=== PATIENT | female | born 1995 | race African-American/Black ===

== ENCOUNTER 2019-10-17 22:51 | Emergency (ER) | payer BC ==
[~2019-10-17] VITALS: Ht 172.7 cm; Wt 73.0 kg
[2019-10-17 22:51] VITALS: BP 133/92
--- NOTE | 2019-10-17 23:12 | PHYS DOC ---
General Adult EDM: Chief Complaint: SHORTNESS OF BREATH HPI: HPI: Patient is an otherwise healthy 24-year-old female who presents with several-day history of some upper respiratory symptoms and chest pain with deep inspiration. She states she feels like she can't get a deep breath and short of breath. She has gone to a mobile clinic and been tested for COVID-19 but does not have the results. She denies any fever chills or sweats. No hemoptysis. She has cough but it's been nonproductive. She states she has some body aches.[] Review of Systems: Review of Systems: Constitutional: Denies fever or chills Eyes: Denies change in visual acuity HENT: Denies nasal congestion or sore throat Respiratory: Per history of present illness Cardiovascular: Denies chest pain or edema GI: Denies abdominal pain, nausea, vomiting, bloody stools or diarrhea : Denies dysuria Musculoskeletal: Denies back pain or joint pain Integument: Denies rash Neurologic: Denies headache, focal weakness or sensory changes Endocrine: Denies polyuria or polydipsia Lymphatic: Denies swollen glands Psychiatric: Denies depression or anxiety Heart Score: Risk Factors: Risk Factors: DM, Current or recent (<one month) smoker, HTN, HLP, family history of CAD, obesity. Risk Scores: Score 0 - 3: 2.5% MACE over next 6 weeks - Discharge Home Score 4 - 6: 20.3% MACE over next 6 weeks - Admit for Clinical Observation Score 7 - 10: 72.7% MACE over next 6 weeks - Early Invasive Strategies Physical Exam: PE: Constitutional: Well developed, well nourished, no acute distress, appears as if she doesn't feel well. [] HENT: Normocephalic, atraumatic, bilateral external ears normal, oropharynx moist, no oral exudates, nose normal. [] Eyes: PERRLA, EOMI, conjunctiva normal, no discharge. [] Neck: Normal range of motion, no tenderness, supple, no stridor. [] Cardiovascular:Heart rate regular rhythm, no murmur [] Lungs & Thorax: Bilateral breath sounds clear to auscultation [] Abdomen: Bowel sounds normal, soft, no tenderness, no masses, no pulsatile masses. [] Skin: Warm, dry, no erythema, no rash. [] Back: No tenderness, no CVA tenderness. [] Extremities: No tenderness, no cyanosis, no clubbing, ROM intact, no edema. [] Neurologic: Alert and oriented X 3, normal motor function, normal sensory function, no focal deficits noted. [] Psychologic: Affect normal, judgement normal, mood normal. [] EKG: EKG: [] Radiology/Procedures: Radiology/Procedures: [] Course & Med Decision Making: Course & Med Decision Making Pertinent Labs and Imaging studies reviewed. (See chart for details) [] Dragon Disclaimer: Dragon Disclaimer: This electronic medical record was generated, in whole or in part, using a voice recognition dictation system. Departure Departure: Impression: Primary Impression: Viral syndrome Disposition: 01 HOME, SELF-CARE Condition: STABLE Referrals: [facility] (PCP) Patient Instructions: Viral Pneumonia, Additional Instructions: Drink plenty of fluids. Tylenol and/or Motrin as needed for discomfort. Return to the emergency department with any new or concerning symptoms LNIO BRISENO DO Oct 17, 2019 23:12
== END 2019-10-17 23:25 | disposition home or self-care (01) ==
LOC: ER 22:51
DX: B34.9 Viral infection, unspecified (principal)
CPT/HCPCS: 99282

== ENCOUNTER 2019-10-23 13:01 | Emergency (ER) | payer BC ==
[~2019-10-23] VITALS: Ht 165.1 cm; Wt 70.5 kg
--- NOTE | 2019-10-23 13:11 | PHYS DOC ---
Past History Past Medical History: Bipolar, Endometriosis, Other Additional Past Medical Histor: pcos Past Surgical History: No Surgical History, Other Additional Past Surgical Histo: dnc Alcohol Use: None General Adult HPI: HPI: Patient is a 24-year-old female with a history of bipolar with a lot of anxiety who returns to the emergency department complaining of continued pain in her chest. She denies any shortness of breath. She has a little bit of a hoarse voice but no real sore throat. She has not had any fever chills or sweats. She has not been coughing. [] Review of Systems: Review of Systems: Constitutional: Denies fever or chills Eyes: Denies change in visual acuity HENT: Denies nasal congestion or sore throat Respiratory: Denies cough or shortness of breath Cardiovascular: Denies chest pain or edema GI: Denies abdominal pain, nausea, vomiting, bloody stools or diarrhea : Denies dysuria Musculoskeletal: Denies back pain or joint pain Integument: Denies rash Neurologic: Denies headache, focal weakness or sensory changes Endocrine: Denies polyuria or polydipsia Lymphatic: Denies swollen glands Psychiatric: Reports anxiety and depression Heart Score: Risk Factors: Risk Factors: DM, Current or recent (<one month) smoker, HTN, HLP, family history of CAD, obesity. Risk Scores: Score 0 - 3: 2.5% MACE over next 6 weeks - Discharge Home Score 4 - 6: 20.3% MACE over next 6 weeks - Admit for Clinical Observation Score 7 - 10: 72.7% MACE over next 6 weeks - Early Invasive Strategies Allergies: Allergies: Allergies Coded Allergies Type Severity Reaction Last Updated Verified quetiapine Allergy Intermediate Rash 10/17/19 Yes Physical Exam: PE: Constitutional: Well developed, well nourished, no acute distress, non-toxic ap pearance. [] HENT: Normocephalic, atraumatic, bilateral external ears normal, oropharynx moist, no oral exudates, nose normal. [] Eyes: PERRLA, EOMI, conjunctiva normal, no discharge. [] Neck: Normal range of motion, no tenderness, supple, no stridor. [] Cardiovascular:Heart rate regular rhythm, no murmur [] Lungs & Thorax: Bilateral breath sounds clear to auscultation [] Abdomen: Bowel sounds normal, soft, no tenderness, no masses, no pulsatile masses. [] Skin: Warm, dry, no erythema, no rash. [] Back: No tenderness, no CVA tenderness. [] Extremities: No tenderness, no cyanosis, no clubbing, ROM intact, no edema. [] Neurologic: Alert and oriented X 3, normal motor function, normal sensory function, no focal deficits noted. [] Psychologic: Very unusual affectanxious [] EKG: EKG: [] Radiology/Procedures: Radiology/Procedures: [] Course & Med Decision Making: Course & Med Decision Making Pertinent Labs and Imaging studies reviewed. (See chart for details) [ED course: Evaluation reveals a 24-year-old female who appears anxious but is in no significant distress. I attempted to reassure her that she just needed to take [id number] medication to help with her symptoms such as Tylenol or Motrin. I encouraged her to drink plenty of fluids. At this time I believe follow-up with her primary care physician is in order.] Jose Disclaimer: Jose Disclaimer: This electronic medical record was generated, in whole or in part, using a voice recognition dictation system. Departure Departure: Impression: Primary Impression: Anxiety about health Disposition: HOME, SELF-CARE Condition: STABLE Referrals: [facility] [employer] (PCP) Patient Instructions: Anxiety and Panic Attacks Additional Instructions: Follow with your primary care physician this week for recheck. LINO BRISENO DO Oct 23, 2019 13:11
[2019-10-23 13:30] VITALS: BP 118/69
== END 2019-10-23 13:30 | disposition home or self-care (01) ==
LOC: ER 13:01
DX: F41.9 Anxiety disorder, unspecified (principal); F32.9 Major depressive disorder, single episode, unspecified
CPT/HCPCS: 99282